=== PATIENT | male | born 1960 | race Hispanic/Latino ===

== ENCOUNTER 2024-05-10 13:21 | Inpatient (IN) | payer SELFPAY ==
[~2024-05-10] VITALS: Ht 165.1 cm; Wt 60.7 kg
[2024-05-10] MEDS: DiphenhydrAMINE HCL 50 MG/ML VIAL IV ONE (13:29)
[2024-05-10] MEDS: Solu-medROL 125MG VIAL IVP ONE (13:30)
[2024-05-10] MEDS: FAMOTIDINE 20MG VIAL IV ONE (13:30)
[2024-05-10] MEDS: 0.9%NACL 1000ML 1,000 ML IV ONE (13:54)
[2024-05-10] MEDS: morPHINE 2 MG SYG IVP ONE ×2 (13:55→14:03)
[2024-05-10] MEDS: ONDANSETRON 4MG INJ IVP ONE ×2 (13:55→16:37)
[2024-05-10] MEDS: EPINEPHrine PF 1MG (1:1,000) 1 MG/ML AMP IM ONE (13:55)
[2024-05-10 14:24] LABS: BASOPHILS # (AUTO) 0.03 K/uL (0.00-0.20); BASOPHILS % (AUTO) 0.2 % (0.0-5.0); EOSINOPHILS # (AUTO) 0.22 K/uL (0.00-0.70); EOSINOPHILS % (AUTO) 1.4 % (0.0-8.0); HEMATOCRIT 34.8 % (42-54); IMMATURE GRANULOCYTE ABSOLUTE 0.08 K/uL (0-1); LYMPHOCYTES # (AUTO) 3.4 K/uL (1.0-4.8); LYMPHOCYTES % (AUTO) 21.4 % (21.0-51.0); MEAN CORPUSCULAR HEMOGLOBIN 22.6 pg (27.0-33.0); MEAN CORPUSCULAR HGB CONC 30.5 g/dL (32.0-36.0); MEAN CORPUSCULAR VOLUME 74.4 fL (79-99); MONOCYTES # (AUTO) 0.7 K/uL (0.1-1.0); MONOCYTES % (AUTO) 4.1 % (3.0-13.0); NEUTROPHILS # (AUTO) 11.3 K/uL (1.8-7.7); NEUTROPHILS % (AUTO) 72.4 % (40.0-77.0); PLATELET COUNT (AUTO) 412 K/uL (130-400); RED BLOOD CELL COUNT(AUTO) 4.68 MIL/uL (4.50-6.20); RED CELL DISTRIBUTION WIDTH 16.2 % (11.0-15.5); WHITE BLOOD COUNT (AUTO) 15.7 K/uL (4.8-10.8)
[2024-05-10 14:35] LABS: CREATININE 1.1 mg/dL (0.5-1.3); POTASSIUM 3.2 mmol/L (3.5-5.1)
[2024-05-10 21:59] VITALS: O2SAT 98
[2024-05-10 22:10] VITALS: BP 153/84; PULSE 91; RESP 18; TEMP 98.5
[2024-05-10] MEDS ORDERED: acetaMINOPHEN WITH coDEINE 1 TAB TAB PO PRN ×2 (23:30)
[2024-05-10] MEDS ORDERED: ONDANSETRON 4MG INJ IV PRN (23:30)
[2024-05-10] MEDS ORDERED: acetaMINOPHEN 325 MG TAB PO PRN ×2 (23:30)
[2024-05-10] MEDS ORDERED: DiphenhydrAMINE HCL 50 MG/ML VIAL IV PRN (23:30)
[2024-05-10] MEDS ORDERED: morPHINE 2 MG SYG IV PRN (23:30)
[2024-05-10] MEDS: 0.9%NACL 1000ML 1,000 ML IV SCH (23:39)
[2024-05-10 23:52] LABS: HEMOGLOBIN A1C 5.9 % (4.0-6.0)
[2024-05-11 03:51] VITALS: BP 166/102; PULSE 87; RESP 18; TEMP 98.3
[2024-05-11] MEDS: LAbetaLOL 20MG SYG IV PRN (04:35)
[2024-05-11 04:37] VITALS: BP 164/90; PULSE 75
[2024-05-11 05:25] LABS: BASOPHILS # (AUTO) 0.08 K/uL (0.00-0.20); BASOPHILS % (AUTO) 0.3 % (0.0-5.0); EOSINOPHILS # (AUTO) 0.03 K/uL (0.00-0.70); EOSINOPHILS % (AUTO) 0.1 % (0.0-8.0); HEMATOCRIT 35.6 % (42-54); IMMATURE GRANULOCYTE ABSOLUTE 0.13 K/uL (0-1); LYMPHOCYTES # (AUTO) 1.1 K/uL (1.0-4.8); LYMPHOCYTES % (AUTO) 3.8 % (21.0-51.0); MEAN CORPUSCULAR HGB CONC 31.5 g/dL (32.0-36.0); MEAN CORPUSCULAR VOLUME 73.1 fL (79-99); MONOCYTES # (AUTO) 1.6 K/uL (0.1-1.0); MONOCYTES % (AUTO) 5.7 % (3.0-13.0); NEUTROPHILS # (AUTO) 25.1 K/uL (1.8-7.7); NEUTROPHILS % (AUTO) 89.6 % (40.0-77.0); PLATELET COUNT (AUTO) 376 K/uL (130-400); RED BLOOD CELL COUNT(AUTO) 4.87 MIL/uL (4.50-6.20); RED CELL DISTRIBUTION WIDTH 16.2 % (11.0-15.5); WHITE BLOOD COUNT (AUTO) 28.1 K/uL (4.8-10.8)
[2024-05-11 05:56] LABS: ALBUMIN 3.2 g/dL (3.5-5.0); BILIRUBIN,TOTAL 0.8 mg/dL (0.2-1.0); CREATININE 0.7 mg/dL (0.5-1.3); POTASSIUM 3.5 mmol/L (3.5-5.1); TOTAL PROTEIN, SERUM 7.2 g/dL (6.0-8.3)
[2024-05-11 06:50] LABS: ERYTHROCYTE SEDIMENTATION RATE 17 MM/HR (0-20)
[2024-05-11 08:00] VITALS: BP 158/95; PULSE 84; RESP 20; TEMP 98.3
[2024-05-11] MEDS: amLODIPine 5 MG TAB PO SCH (09:07)
[2024-05-11] MEDS: PREDNISONE 20 MG TABLET PO SCH (09:07)
[2024-05-11] MEDS: ENOXAPARIN SODIUM 30 MG/0.3 ML SQ SCH (09:08)
[2024-05-11 12:00] VITALS: BP 149/75; PULSE 69; RESP 18; TEMP 98.4
[2024-05-11] MEDS: FAMOTIDINE 20MG VIAL IV SCH (12:25)
[2024-05-11] MEDS ORDERED: PRED20B PO (16:24)
[2024-05-11] MEDS ORDERED: AMLO5TAB4 PO (16:24)
== END 2024-05-11 17:10 | disposition home or self-care (01) | DRG 918 ==
LOC: EDH 13:21 → EDHIP 18:09 → 3AH 22:04
PROVIDERS: ADMIT Hospitalist; ATTEND Hospitalist
DX: T63.441A Toxic effect of venom of bees, accidental (unintentional), initial encounter (principal); I10 Essential (primary) hypertension; R73.9 Hyperglycemia, unspecified; Z79.899 Other long term (current) drug therapy; Y92.89 Other specified places as the place of occurrence of the external cause
CPT/HCPCS: 36415; 80048; 80053; 82550; 83036; 84484; 85025; 85651; 93005; 96361; 96372; 96374; 96376; G0378; J0171; J1650; J2270; J2405; J3490; J7030